=== PATIENT | male | born 1980 | race Caucasian/White ===

== ENCOUNTER 2017-01-25 10:11 | Day surgery (SDC) | payer OTHER ==
[2017-01-25 10:35] LABS: Urine Bilirubin Negative (NEGATIVE); Urine Blood Negative /ul (NEGATIVE); Urine Ketone Negative (NEGATIVE); Urine Nitrite Negative (NEGATIVE); Urine Protein Negative (NEGATIVE); Urine Specific Gravity 1.025 SP.GR. (1.005-1.030); Urine Urobilinogen Normal (NORMAL)
[2017-01-25 10:44] LABS: Urine Appearance Clear; Urine Bacteria None Seen; Urine Color Yellow; Urine RBC None Seen /hpf (0-5); Urine WBC None Seen /hpf (0-5)
[2017-01-25 10:50] LABS: Hematocrit 45.4 % (42.0-52.0); Hemoglobin 15.6 gm/dL (13.5-18.0); Mean Corpuscular Hemoglobin 30.2 pg (27-31); Mean Corpuscular Hgb Conc 34.4 g/dl (32-36); Mean Platelet Volume 9.4 fl (6.0-9.5); Neutrophil # 13.1 K/mm3 (1.3-6.0); Platelet Count 374 K/mm3 (150-450); Red Blood Count 5.16 M/mm3 (4.7-6.0); Red Cell Distribution Width 12.7 % (11.5-14.0); White Blood Count 17.6 K/mm3 (4.0-10.5)
[2017-01-25 11:04] LABS: Albumin * 4.2 gm/dl (3.4-5.0); Anion Gap 11.2 mmol/L (6.8-13.8); BUN/Creatinine Ratio 11.1 (9.0-21.6); Bilirubin, Total 1.1 mg/dL (0.0-1.1); Ca. Corrected For Albumin 8.7 mg/dL (8.4-10.2); Calcium * 9.2 mg/dL (7.9-10.9); Carbon Dioxide 29.1 mmol/L (24-32.6); Potassium 4.3 mmol/L (3.4-4.6); Total Protein 7.2 gm/dL (6.2-8.2)
[2017-01-25] MEDS ORDERED: ONDANSETRON HCL/PF 2 MG/ML VIAL IV ONE (11:35)
[2017-01-25] MEDS ORDERED: KETOROLAC TROMETHAMINE 30 MG/ML VIAL IV ONE (11:35)
[2017-01-25] MEDS ORDERED: NORMAL SALINE 1,000 ML IV ONE (11:35)
--- NOTE | 2017-01-25 11:36 | ERNOTE ---
Abdominal HPI - Narrative Date of Service: 01/25/17 - General Chief Complaint: Abdominal Pain Time Seen by Provider: 01/25/17 11:27 Source: patient, RN notes reviewed Exam Limitations: no limitations - Immun/Allergies/Home Medications Immunizatons: IMMUNIZATION HX Immunizations Up to Date Yes: reports last tetanus 3 or 4 yrs ago Allergies/Adverse Reactions: Allergies aspirin Adverse Reaction (Verified 01/25/17 10:25) Home Medications: HOME MEDICATIONS NK [No Home Medication] 01/25/17 [Last Taken Unknown] - History of Present Illness Narrative: Raza is a 36 year old male who presents to the ED by private vehicle for abdominal pain. The pain began yesterday morning in the periumbillical region. Today, it is localized to the right lower quadrant. He also reports nausea and occasional episodes of diaphoresis. He has no prior history of abdominal surgery. He denies any sick contacts. Date (Duration): 01/24/17 Timing: getting worse Quality: moderate, sharpness Activities at Onset: none Associated Symptoms: Present: diaphoresis, nausea, loss of appetite. Absent: headache, back pain, chest pain, neck pain, diarrhea-gross blood, diarrhea- mucous, heartburn, vomiting, shortness of breath, swelling/mass in abdomen Prior Abdominal Problems: Present: none Prior Treatment: Absent: recently seen Review of Systems - Review of Systems Constitutional: Present: malaise. Absent: fever, chills EYE: Present: no symptoms reported ENT: Present: no symptoms reported Respiratory: Absent: shortness of breath, cough Cardiology: Absent: chest pain, syncope Gastrointestinal/Abdominal: Present: nausea, abdominal pain, eating less, drinking less. Absent: vomiting, diarrhea, constipation Genitourinary: Absent: dysuria, hematuria Musculoskeletal: Absent: back pain, muscle pain Skin: Absent: rash, lesions Neurological: Absent: headache, dizziness/light-headedness Endocrine: Present: no symptoms reported Hematologic/Lymphatic: Absent: easy bruising, easy bleeding Psych: Present: no symptoms reported - Patient's Past Medical History Patient History - Medical: No pertinent hx Patient History - Cardiac/Respiratory: No pertinent hx Patient History - Cancer: No Hx of Cancer Patient History - Surgical Procedures: T & A, Orthopedic - Social History Living Situations: home Smoking Status: Current every day smoker Cigarettes Packs Per Day: 0.5 Alcohol Use: occasionally Drug Use: none - Immunizations Immunizations Up to Date: Yes - reports last tetanus 3 or 4 yrs ago Physical Exam - Physical Exam General Appearance: Present: wd/wn, alert, other - Appears somewhat uncomfortable Neck: Present: normal inspection, nontender, supple, full range of motion Respiratory: Present: no respiratory distress, normal breath sounds, no accessory muscle use, lungs clear Cardiovascular/Chest: Present: regular rate, rhythm, no murmur, normal peripheral pulses Gastrointestinal/Abdominal: Present: normal bowel sounds, nondistended, soft, tenderness - moderate to severe in right lower quadrant. Absent: mass, hernia Extremity Exam: Present: normal inspection, normal range of motion, no edema Neurological Exam: Present: alert, oriented, normal mood/affect, no motor/ sensory deficits Skin Exam: Present: normal color, warm/dry ED Progress - Results and Orders Patient's Lab Results:: I have reviewed the patient's lab results. - Vital Signs Patient's Vital Signs:: I have reviewed the patient's vital signs. Vital Signs: Vital Signs 01/25/17 10:22 Temperature 36.8 C Pulse Rate 73 Respiratory 12 Rate Blood Pressure 122/85 O2 Sat by Pulse 98 Oximetry - CT/Ultrasound CT/Ultrasound Narrative: CT of abdomen and pelvis shows acute, uncomplicated appendicitis - Progress/Reassessment Chief Complaint: Abdominal Pain Progress:: Improved Plan - Plan Plan: Dr. Larsen contacted and saw patient in department. He is planning to take the patient to the OR for a laparascopic appendectomy. Departure - Departure Clinical Impression: Acute appendicitis, uncomplicated Disposition: [facility] Condition: Stable
[2017-01-25] MEDS ORDERED: KETOROLAC TROMETHAMINE 30 MG/ML VIAL ONE (11:46)
[2017-01-25] MEDS ORDERED: ONDANSETRON HCL/PF 2 MG/ML VIAL ONE (11:46)
[2017-01-25] MEDS ORDERED: DIATRIZOATE MEGLU/DIATRIZO SOD 30 ML BTL ONE (11:55)
[2017-01-25] MEDS ORDERED: DIATRIZOATE MEGLU/DIATRIZO SOD 30 ML BTL PO ONE (11:58)
[2017-01-25] MEDS ORDERED: metroNIDAZOLE/SODIUM CHLORIDE 500 MG/100 ML BAG IV ONE (15:11)
[2017-01-25] MEDS ORDERED: LEVOFLOXACIN/D5W 750 MG/150 ML BAG IV ONE (15:11)
--- NOTE | 2017-01-25 15:38 | HP ---
Chief Complaint - Chief Complaint Date of Service: 01/25/17 Time of Service: 15:33 Chief Complaint: RLQ abdominal pain History of Present Illness: Had onset of RLQ abdominal pain yesterday morning that has progressed. ER eval reveals WBC ~ 17K and CT c/w acute non-perforated appendicitis. - Patient's Past Medical History Patient History - Medical: No pertinent hx Patient History - Cardiac/Respiratory: No pertinent hx Patient History - Cancer: No Hx of Cancer Patient History - Surgical Procedures: T & A, Orthopedic - Social History Living Situations: home Smoking Status: Current every day smoker Cigarettes Packs Per Day: 0.5 Alcohol Use: occasionally Drug Use: none - Immunizations Immunizations Up to Date: Yes - reports last tetanus 3 or 4 yrs ago Review Of Systems (GEN) - Review of Systems Abdominal: Present: Abdominal Pain Misc: All systems neg except as marked Immunizations: IMMUNIZATION HX Immunizations Up to Date Yes: reports last tetanus 3 or 4 yrs ago Allergies/Adverse Reactions: Allergies Allergy/AdvReac Type Severity Reaction Status Date / Time aspirin AdvReac Verified 01/25/17 10:25 Home Medications: HOME MEDICATIONS NK [No Home Medication] 01/25/17 [Last Taken Unknown] Exam - Exam Vital Signs: Vital Signs - Last Taken Temp 36.8 C 01/25/17 15:25 Pulse 79 01/25/17 15:25 Resp 15 01/25/17 15:25 BP 131/75 01/25/17 15:25 Pulse Ox 96 01/25/17 15:25 Constitutional: Present: Alert, Oriented x3, Cooperative, Well developed, Well nourished, Mild distress ENT Exam: Present: normal ENT inspection Eye Exam: bilateral eye: normal inspection Neck: Present: non-tender, full range of motion, supple, normal inspection, trachea midline Respiratory: Present: normal breath sounds, no respiratory distress Cardiovascular/Chest: Present: regular rate, rhythm, no murmur Abdomen: Present: Normal bowel sounds, tender - RLQ Extremity: Present: normal range of motion, normal inspection Skin Exam: Present: normal color, warm/dry Neurologic: Present: no motor/sensory deficits Appearance: Present: appropriate appearance Diagnostic Studies: Abnormal Lab Results 01/25/17 Range/Units 10:40 WBC 17.6 H (4.0-10.5) K/mm3 Immature Gran % (Auto) 1.30 H (0.001-0.429) % Immature Gran # (Auto) 0.23 H (0.000-0.0310) K/mm3 Lymphocytes % 14.7 L (20-51) % Neutrophils # 13.1 H (1.3-6.0) K/mm3 Monocytes # 1.3 H (0.0-1.0) k/mm3 Laboratory Results WBC 17.6 K/mm3 (4.0-10.5) H 01/25/17 10:40 RBC 5.16 M/mm3 (4.7-6.0) 01/25/17 10:40 Hgb 15.6 gm/dL (13.5-18.0) 01/25/17 10:40 Hct 45.4 % (42.0-52.0) 01/25/17 10:40 MCV 88.0 fl (78-100) 01/25/17 10:40 MCH 30.2 pg (27-31) 01/25/17 10:40 MCHC 34.4 g/dl (32-36) 01/25/17 10:40 RDW 12.7 % (11.5-14.0) 01/25/17 10:40 Plt Count 374 K/mm3 (150-450) 01/25/17 10:40 MPV 9.4 fl (6.0-9.5) 01/25/17 10:40 Immature Gran % (Auto) 1.30 % (0.001-0.429) H 01/25/17 10:40 Immature Gran # (Auto) 0.23 K/mm3 (0.000-0.0310) H 01/25/17 10:40 Neutrophils % 75.0 % (42-75.0) 01/25/17 10:40 Lymphocytes % 14.7 % (20-51) L 01/25/17 10:40 Monocytes % 7.3 % (0.0-9) 01/25/17 10:40 Eosinophils % 1.0 % (0.0-3.0) 01/25/17 10:40 Basophils % 0.7 % (0.0-1.0) 01/25/17 10:40 Nucleated RBC % 0.0 k/mm3 (0-1) 01/25/17 10:40 Neutrophils # 13.1 K/mm3 (1.3-6.0) H 01/25/17 10:40 Lymphocytes # 2.6 k/mm3 (1.5-3.5) 01/25/17 10:40 Monocytes # 1.3 k/mm3 (0.0-1.0) H 01/25/17 10:40 Eosinophils # 0.2 k/mm3 (0.0-0.7) 01/25/17 10:40 Absolute Basophils 0.1 k/mm3 (0.0-0.1) 01/25/17 10:40 Sodium 138 mmol/L (132-142) 01/25/17 10:40 Plasma Sodium 138 mmol/L (130-142) 01/25/17 10:40 Potassium 4.3 mmol/L (3.4-4.6) 01/25/17 10:40 Chloride 102 mmol/L (97-106) 01/25/17 10:40 Carbon Dioxide 29.1 mmol/L (24-32.6) 01/25/17 10:40 Anion Gap 11.2 mmol/L (6.8-13.8) 01/25/17 10:40 BUN 10 mg/dL (6-23) 01/25/17 10:40 Creatinine 0.90 mg/dL (0.4-1.4) 01/25/17 10:40 Est GFR (Non-Af Amer) 101 mL/min (60-130) 01/25/17 10:40 BUN/Creatinine Ratio 11.1 (9.0-21.6) 01/25/17 10:40 Random Glucose 93 mg/dL (70-110) 01/25/17 10:40 Calcium 9.2 mg/dL (7.9-10.9) 01/25/17 10:40 Calcium Adj for Albumin 8.7 mg/dL (8.4-10.2) 01/25/17 10:40 Total Bilirubin 1.1 mg/dL (0.0-1.1) 01/25/17 10:40 AST 16 U/L (0-48) 01/25/17 10:40 ALT 21 U/L (19-67) 01/25/17 10:40 Alkaline Phosphatase 72 U/L (50-170) 01/25/17 10:40 Total Protein 7.2 gm/dL (6.2-8.2) 01/25/17 10:40 Albumin 4.2 gm/dl (3.4-5.0) 01/25/17 10:40 Amylase 39 U/L (25-115) 01/25/17 10:40 Lipase 161 U/L (73-393) 01/25/17 10:40 Urine Color Yellow 01/25/17 10:17 Urine Appearance Clear 01/25/17 10:17 Urine pH 6.0 pH (5.0-7.0) 01/25/17 10:17 Ur Specific [place] 1.025 SP.GR. (1.005-1.030) 01/25/17 10:17 Urine Protein Negative mg/dL (NEGATIVE) 01/25/17 10:17 Urine Glucose (UA) Negative mg/dL (NEGATIVE) 01/25/17 10:17 Urine Ketones Negative mg/dL (NEGATIVE) 01/25/17 10:17 Urine Blood Negative /ul (NEGATIVE) 01/25/17 10:17 Urine Nitrate Negative (NEGATIVE) 01/25/17 10:17 Urine Bilirubin Negative mg/dl (NEGATIVE) 01/25/17 10:17 Urine Urobilinogen Normal EU/dl (NORMAL) 01/25/17 10:17 Ur Leukocyte Esterase Negative /ul (NEGATIVE) 01/25/17 10:17 Urine RBC None seen /hpf (0-5) 01/25/17 10:17 Urine WBC None seen /hpf (0-5) 01/25/17 10:17 Ur Epithelial Cells Trace /hpf (0-5) 01/25/17 10:17 Urine Bacteria None seen (NONE) 01/25/17 10:17 Urine Culture Comments No culture indicated 01/25/17 10:17 Assessment/Plan - Narrative Narrative: A: Acute appendicitis P: Recommend laparoscopic appendectomy. The options, risks, and benefits were reviewed fully. He seems to understand, asks appropriate questions, and desires to proceed. - Assessment/Plan (1) Acute appendicitis, uncomplicated Problem: Acute
[2017-01-25] MEDS ORDERED: RINGERS SOLUTION,LACTATED 1,000 ML IV ONE (15:45)
[2017-01-25] MEDS ORDERED: BUPIVACAINE HCL/EPINEPHRINE 50 ML VIAL IJ ONE ×2 (16:15)
--- NOTE | 2017-01-25 17:03 | OR ---
Operative Report - Dictated Report Narrative: Date: 01/25/2017 Preop diagnosis: acute appendicitis Postop diagnosis: same Procedure: laparoscopic appendectomy Surgeon: Cornell Larsen MD EBL: minimal Specimen: appendix Drains: none Complications; none apparent Procedure: Pt was placed in the supine position and following GETA a sanchez catheter was inserted and abdomen prepped and draped in a sterile fashion. All port sites anesthetized with marcaine prior to incision. 5mm infraumbilical incision made. A towel clip was placed through the umbilical raphe for countertraction. Abdomen was entered under direct vision with a scope within the lumen of the blunt trocar. Under direct vision a suprapubic 12mm and LLQ 5mm ports were inserted. There were noted to be old thick adhesions of the right colon to the right flank abdominal wall and the sigmoid colon to the left iliac fossa. The appendix was mildly involved with inflammation. It was elevated and the mesoappendix was taken down with a thunderbeat. The appendix was transected flush with the cecum using an endoGIA stapler. Appendix was placed in an endocatch bag and delivered out of the suprapubic port. Hemostasis appeared adequate. No purulence was encountered. Pneumoperitoneum was evacuated and ports removed. Incisions were closed with subcuticular 4-0 vicryl and sealed with dermabond. Sanchez was removed. Pt was discharged from the OR in stable condition without apparent complications.
[2017-01-25] MEDS ORDERED: MORPHINE SULFATE 2 MG/ML DISP.SYRIN IV PRN (17:08)
[2017-01-25] MEDS ORDERED: RINGERS SOLUTION,LACTATED 1,000 ML IV PRN (17:08)
[2017-01-25 18:46] VITALS: BP 130/79
== END 2017-01-25 15:38 | disposition home or self-care (01) ==
LOC: ER 10:11 → AMB 15:37 → MS 16:59 → UNDOADMOB 16:59
PROVIDERS: ATTEND Specialist
PROC: 0DTJ4ZZ Resection of Appendix, Percutaneous Endoscopic Approach (ICD-10-PCS; principal; 2017-01-25 15:30)
DX: K35.80 Unspecified acute appendicitis (principal); F17.200 Nicotine dependence, unspecified, uncomplicated; Z68.25 Body mass index [BMI] 25.0-25.9, adult
CPT/HCPCS: 36415; 44970; 74177; 80053; 81001; 82150; 83690; 85025; 96374; 96375; 99284; J2405